=== PATIENT | male | born 1955 ===

== ENCOUNTER 2021-02-04 07:10 | Outpatient (CLI) | payer MEDICARE, OTHER ==
[~2021-02-04] VITALS: Ht 188 cm; Wt 118.2 kg
[2021-02-04] MEDS ORDERED: RT-ALBUINH INH (14:22)
[2021-02-04] MEDS ORDERED: METF-399 PO (14:22)
[2021-02-04] MEDS ORDERED: LISI40TA9 PO (14:22)
[2021-02-04] MEDS ORDERED: HYDR50TA6 PO (14:22)
[2021-02-04] MEDS ORDERED: ATOR40TA70 PO (14:22)
== END 2021-02-04 15:07 | disposition home or self-care (01) ==
LOC: PREOP 07:10
PROVIDERS: ATTEND Podiatrist Foot & Ankle Surgery
DX: Z01.818 Encounter for other preprocedural examination (principal)